=== PATIENT | male | born 1970 | race Caucasian/White ===

== ENCOUNTER 2018-12-31 07:51 | Emergency (ER) | payer OTHER ==
[~2018-12-31] VITALS: Ht 175.3 cm; Wt 82.0 kg
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
--- NOTE | 2018-12-31 08:55 | NUR ---
PT. RETURNS FROM RADIOLOGY. DR. MAKI REMOVED THE PT.'S C-COLLAR. PT. IS RESTING WITHOUT CONCERNS. VSS. PT. HAS THE HOB ELEVATED. FRIENDS AT THE BEDSIDE. SIDERAILS REMAIN UP X [address] WITH THE CALL LIGHT IN PLACE.
--- NOTE | 2018-12-31 09:35 | NUR ---
PT. WAS GIVEN DISCHARGE INSTRUCTIONS AND A SCRIPT WITH UNDERSTANDING VERBALIZED ALONG WITH WILLINGNESS TO COMPLY. PT. WAS AMBULATORY TO THE DISCHARGE DESK. VSS. STEADY GAIT.
[2018-12-31 09:36] VITALS: BP 118/74
== END 2018-12-31 09:45 | disposition home or self-care (01) ==
LOC: ED 09:40
DX: S09.90XA Unspecified injury of head, initial encounter (principal); X02.0XXA Exposure to flames in controlled fire in building or structure, initial encounter; Y93.89 Activity, other specified; Y92.89 Other specified places as the place of occurrence of the external cause; Y99.8 Other external cause status
CPT/HCPCS: 70450; 72020; 72050; 99284